=== PATIENT | male | born 1990 | race Caucasian/White ===

== ENCOUNTER → 2022-10-29 | Outpatient (CLI) | payer BC ==
--- NOTE | 2022-10-29 11:45 | CA ---
Transthoracic Echo Report Name: Allan Dahl Age: 32 Gender: M : 1990 Exam Date: 10/29/2022 08:35 Exam Location: [facility] Ht (in): 70 Wt (lb): 190 Ordering Physician: Gaston Schultz DO Attending/Referring Phys: Water[employer] Project Manager Scot Mack RDCS Procedure CPT: Indications: R07.89 other chest pain Cardiac Hx: HTN Technical Quality: Good Contrast 1: Total Dose (mL): Contrast 2: Total Dose (mL): MEASUREMENTS (Male / Female) Normal Values 2D ECHO LV Diastolic Diameter PLAX 3.9 cm 4.2 - 5.9 / 3.9 - 5.3 cm LV Systolic Diameter PLAX 2.4 cm LV Fractional Shortening PLAX 38.4 % IVS Diastolic Thickness 1.4 cm 0.6 - 1.0 / 0.6 - 0.9 cm IVS Systolic Thickness 2.2 cm LVPW Diastolic Thickness 1.5 cm 0.6 - 1.0 / 0.6 - 0.9 cm LVPW Systolic Thickness 1.7 cm LV Relative Wall Thickness 0.8 RV Internal Dim ED PLAX 3.5 cm LVOT Diameter 2.2 cm LA Systolic Diameter LX 3.6 cm 3.0 - 4.0 / 2.7 - 3.8 cm LV Diastolic Volume MOD BP 79.3 cm??? 67 - 155 / 56 - 104 cm??? LV Systolic Volume MOD BP 45.3 cm??? 22 - 58 / 19 - 49 cm??? LV Ejection Fraction MOD BP 42.9 % >= 55 % LV Stroke Volume MOD BP 34.0 cm??? LV Diastolic Volume MOD 4C 87.0 cm??? LV Systolic Volume MOD 4C 37.2 cm??? LV Ejection Fraction MOD 4C 57.3 % LV Stroke Volume MOD 4C 49.9 cm??? LV Cardiac Output MOD 4C 4439.8 cm???/min LV Diastolic Length 4C 8.3 cm LV Systolic Length 4C 6.7 cm LV Diastolic Volume MOD 2C 128.7 cm??? LV Systolic Volume MOD 2C 47.8 cm??? LV Ejection Fraction MOD 2C 62.9 % LV Stroke Volume MOD 2C 80.9 cm??? LV Cardiac Output MOD 2C 6528.0 cm???/min LV Diastolic Length 2C 8.7 cm LV Systolic Length 2C 7.1 cm Ascending Aorta Diameter 2.7 cm M-MODE Aortic Root Diameter MM 3.1 cm LA Systolic Diameter MM 4.2 cm LA Ao Ratio MM 1.3 MV E Point Septal Separation 0.7 cm AV Cusp Separation MM 2.0 cm DOPPLER AV Peak Velocity 145.7 cm/s AV Peak Gradient 8.5 mmHg MV Deceleration Bradford 479.5 cm/s??? MR Peak Velocity 479.8 cm/s MR Peak Gradient 92.1 mmHg Mitral E Point Velocity 86.9 cm/s Mitral A Point Velocity 45.9 cm/s Mitral E to A Ratio 1.9 MV Deceleration Time 181.3 ms MV E' Velocity 8.1 cm/s Mitral E to MV E' Ratio 10.7 TR Peak Velocity 200.0 cm/s TR Peak Gradient 16.0 mmHg Right Ventricular Systolic Press 24.0 mmHg PV Peak Velocity 110.3 cm/s PV Peak Gradient 4.9 mmHg FINDINGS Left Ventricle Left ventricular ejection fraction is estimated at 55-60 %. Mild concentric left ventricular hypertrophy. Normal left ventricular wall motion. Normal basal systolic function. Right Ventricle Normal right ventricular size and function. Right Atrium Normal right atrial size. Left Atrium Mild left atrial dilatation. Mitral Valve Structurally normal mitral valve. [id number] mitral regurgitation. Aortic Valve Trileaflet aortic valve. No aortic stenosis. No aortic regurgitation. Tricuspid Valve Mild tricuspid regurgitation. Pulmonic Valve Trace to mild pulmonic regurgitation. Pericardium Normal pericardium. No pericardial effusion. Aorta Normal size aortic root and proximal ascending aorta. CONCLUSIONS Normal LV systolic function [id number] mitral regurgitation Previewed by: Dr. Kushal Hutton MD (Electronically Signed) Final Date: 29 October 2022 11:45
== END | disposition home or self-care (01) ==
LOC: RADECHMAIN 08:25
PROVIDERS: ATTEND Family Medicine
DX: I34.0 Nonrheumatic mitral (valve) insufficiency (principal)
CPT/HCPCS: 93306

== ENCOUNTER → 2022-11-18 | Outpatient (CLI) | payer BC ==
--- NOTE | 2022-11-18 13:01 | CA ---
Exercise Stress Test Report Name: Allan Dahl Exam Date: 11/18/2022 09:14 Exam Location: [facility] Ht (in): 70 Wt (lb): 190 BSA: 2.04 Ordering Phys: Gaston Diop DO Referring Phys: DIOP Technologist: Alf Ponce Age: 32 Gender: M : 1990 Procedure CPT: Indications: R07.89 ICD-10 Codes: Patient History: Chest tightness and abnormal EKG Medications: Meds past 24 hrs: Pretest Chest Pain: STRESS TEST Josias Protocol Exercise Duration (min:sec): 13:[address] Depressions (mm): Angina Score: Trimble Score: Resting HR (bpm): 64 Peak HR (bpm): 174 Resting BP (mmHg): 122 / 78 Peak BP (mmHg): 164 / 59 MPHR: 188 Target HR: 160 % MPHR: 93 METS: 13.9 Total Dose: Peak Dose: Atropine: Double Product: 33757 BP Response: Stress Termination: Reached target heart rate Stress Symptoms: No chest pain or symptoms Stress Summary: ECG ANALYSIS Resting ECG: Stress ECG: CONCLUSIONS Baseline EKG revealed normal sinus rhythm without significant ST-T changes. Patient walked on a standard Josias protocol for 13 minutes 40 seconds and achieved a maximum heart rate of 174 bpm which is available 85% of predicted maximal. Resting blood pressure was 122/78 peak blood pressure was 164/59. There was no angina. There was no arrhythmia and there were no ST segment changes to indicate ischemia. This is a negative stress test with excellent exercise capacity with no evidence of ischemia Dr. Ignacia Harris MD (Electronically Signed) Final Date: 18 Nov 2022 13:00
== END | disposition home or self-care (01) ==
LOC: RADNMMAIN 08:36
PROVIDERS: ATTEND Family Medicine
DX: R07.89 Other chest pain (principal)
CPT/HCPCS: 93017